=== PATIENT | male | born 1950 | race Caucasian/White ===

== ENCOUNTER 2016-12-19 09:15 | Inpatient (IN) | payer MEDICARE, BC ==
[2016-12-19] VITALS (486 sets, daily range): BP systolic 73–163; BP diastolic 55–117; PULSE 60–103; TEMP 98.3–100.2; O2SAT 85–100
[~2016-12-19] VITALS: Ht 177.8 cm; Wt 109.4 kg
[~2016-12-19 09:15] MED LIST: CELEXA 20MG20 MG/TAB PO; CELEXA40 MG PO; DILAUDID 4MG TAB4 MG PO; GLUCOPHAGE500 MG/TAB PO; HYZAAR 50-12.1 UDTAB PO; LEVAQUIN 750MG750 M1 PO; MS CONTIN 115 MG/TAB PO; MS CONTIN 330 MG/TAB PO; ORAMORPH SR30 MG PO; PAMELOR 10MG10 MG PO; ROXICODONE15 MG PO; VALIUM 5MG T5 MG/TAB PO; VENTOLIN0.09 MG IH
[2016-12-19 10:07] LABS: COLLECTION METHOD CLEAN CATCH
[2016-12-19 10:27] LABS: BUDDING YEAST Present /hpf; GRANULAR CAST >12 /lpf; MUCOUS Present /lpf; PH 5 (5-8); SQUAMOUS EPITHELIAL 0-2 /hpf; URINE APPEARANCE Hazy; URINE BACTERIA Rare /hpf; URINE BILIRUBIN Negative (NEGATIVE); URINE BLOOD 1+ (NEGATIVE); URINE COLOR Yellow; URINE GLUCOSE Negative (NEGATIVE); URINE KETONE Negative (NEGATIVE); URINE LEUKOCYTE ESTERASE Negative (NEGATIVE); URINE PROTEIN(semi-quant) 2+ (NEGATIVE); URINE UROBILINOGEN Negative (NEGATIVE)
[2016-12-19] MEDS ORDERED: MS CONTIN 330 MG/TAB PO (10:31)
[2016-12-19 10:52] LABS: PROTHROMBIN TIME 11.5 SECONDS (9.7-12.8)
[2016-12-19 11:08] LABS: ALBUMIN 4.4 gm/dL (3.5-5.0); BILIRUBIN,TOTAL 0.5 mg/dL (0.0-1.0); CALCIUM 8.3 mg/dL (8.4-10.2); CREATININE, serum 1.72 mg/dL (0.66-1.25); TOTAL PROTEIN 7.5 gm/dL (6.4-8.2)
[2016-12-19 11:26] LABS: BASO % 0.1 % (0.0-2.0); GRAN # 11.9 (1.4-6.5); GRAN % 86.8 % (42.2-75.2); HEMATOCRIT 45.3 % (42.0-52.0); HEMOGLOBIN 13.6 g/dl (13.5-18.0); LYMPH # 0.6 (1.2-3.4); LYMPH % 4.2 % (20.0-51.0); MEAN CELL VOLUME 97 fl (80.0-100.0); MEAN CORPUSCULAR HEMOGLOBIN 29 pg (27.0-31.0); MEAN CORPUSCULAR HGB CONC 30 g/dl (33.0-37.0); MEAN PLATELET VOLUME 11.1 fl (7.4-10.4); MONO # 1.2 (0.1-0.6); MONO % 8.4 % (1.7-9.3); PLATELET COUNT 251 K/mm3 (130-400); RED BLOOD COUNT 4.67 M/mm3 (4.20-5.60); WHITE BLOOD COUNT 13.7 K/mm3 (4.8-10.8)
[2016-12-19 11:43] LABS: ARTERIAL BLD GAS O2 SATURATION 96.7 % (92-100); ARTERIAL BLD GAS TCO2 CT 27.7; ARTERIAL BLOOD GAS HCO3 25.8 meq/L (22-26); ARTERIAL BLOOD GAS PHT 7.23 C (7.35-7.45); ARTERIAL BLOOD GAS PO2 84.9 mmHg (80-100); ARTERIAL BLOOD GAS PO2T 84.9 (80-100); ARTERIAL BLOOD GAS pH 7.23 (7.35-7.45)
[2016-12-19 11:44] LABS: POTASSIUM 6.5 mmol/L (3.4-5.0)
[2016-12-19 11:47] LABS: ATS? NO
[2016-12-19 16:58] LABS: VENOUS BLOOD GAS BE 0.6 (-4-4); VENOUS BLOOD GAS SAO2 58.2 % (60-80)
[2016-12-19 16:59] LABS: VENOUS BLOOD GAS SITE CENTRAL LINE
[2016-12-19 21:23] LABS: MAGNESIUM 1.7 mg/dL (1.6-2.3); PHOSPHOROUS 0.9 mg/dL (2.5-4.5); POTASSIUM 4.7 mmol/L (3.4-5.0)
[2016-12-20] VITALS (959 sets, daily range): BP systolic 114–140; BP diastolic 60–71; PULSE 62–78; TEMP 97.9–99.2; O2SAT 83–100
[2016-12-20 04:18] LABS: BASO % 0.3 % (0.0-2.0); EOS % 0.2 % (0-4.0); GRAN # 9.3 (1.4-6.5); GRAN % 78.6 % (42.2-75.2); LYMPH # 1.4 (1.2-3.4); LYMPH % 11.9 % (20.0-51.0); MEAN CORPUSCULAR HGB CONC 35 g/dl (33.0-37.0); MEAN PLATELET VOLUME 11.5 fl (7.4-10.4); MONO % 8.6 % (1.7-9.3); PLATELET COUNT 157 K/mm3 (130-400); RED BLOOD COUNT 3.61 M/mm3 (4.20-5.60); WHITE BLOOD COUNT 11.8 K/mm3 (4.8-10.8)
[2016-12-20 04:22] LABS: HEMATOCRIT 32.9 % (42.0-52.0); HEMOGLOBIN 11.6 g/dl (13.5-18.0); MEAN CELL VOLUME 91 fl (80.0-100.0); MEAN CORPUSCULAR HEMOGLOBIN 32 pg (27.0-31.0)
[2016-12-20 04:29] LABS: MAGNESIUM 2.3 mg/dL (1.6-2.3)
[2016-12-20 04:30] LABS: ADJUSTED CALCIUM 8.6 mg/dL (8.4-10.2); ALBUMIN 2.9 gm/dL (3.5-5.0); BILIRUBIN,TOTAL 0.2 mg/dL (0.0-1.0); CALCIUM 7.7 mg/dL (8.4-10.2); CREATININE, serum 1.07 mg/dL (0.66-1.25); POTASSIUM 3.7 mmol/L (3.4-5.0); TOTAL PROTEIN 6.1 gm/dL (6.4-8.2)
[2016-12-20 04:42] LABS: TROPONIN-I 0.105 ng/mL (0.000-0.034)
[2016-12-20 05:03] LABS: ARTERIAL BLD GAS O2 SATURATION 97.2 % (92-100); ARTERIAL BLD GAS TCO2 CT 17.1; ARTERIAL BLOOD GAS BASE EXCESS -4.8 (-2-2); ARTERIAL BLOOD GAS HCO3 16.5 meq/L (22-26); ARTERIAL BLOOD GAS PO2 99.5 mmHg (80-100); ARTERIAL BLOOD GAS pH 7.53 (7.35-7.45); OXYHEMOGLOBIN 96.4 %
[2016-12-20 05:04] LABS: ATS? YES
[2016-12-20 06:39] LABS: INR 1.3 (0.8-3.0); PROTHROMBIN TIME 14.1 SECONDS (9.7-12.8)
[2016-12-20 07:05] LABS: VENOUS BLOOD GAS BE 2.1 (-4-4); VENOUS BLOOD GAS SAO2 71.5 % (60-80); VENOUS BLOOD GAS SITE CENTRAL LINE
[2016-12-20 10:25] LABS: VENOUS BLOOD GAS BE 0.3 (-4-4); VENOUS BLOOD GAS SAO2 75.2 % (60-80)
[2016-12-20 10:26] LABS: VENOUS BLOOD GAS SITE CENTRAL LINE
[2016-12-20 11:20] LABS: ARTERIAL BLD GAS O2 SATURATION 93.5 % (92-100); ARTERIAL BLD GAS TCO2 CT 27.6; ARTERIAL BLOOD GAS BASE EXCESS 0.1 (-2-2); ARTERIAL BLOOD GAS HCO3 26.1 meq/L (22-26); ARTERIAL BLOOD GAS PHT 7.35 C (7.35-7.45); ARTERIAL BLOOD GAS PO2 70.5 mmHg (80-100); ARTERIAL BLOOD GAS PO2T 70.5 (80-100); ARTERIAL BLOOD GAS pH 7.35 (7.35-7.45); OXYHEMOGLOBIN 92.9 %
[2016-12-20 11:21] LABS: ABG VENTILATOR TIDAL VOLUME 450 mL; ATS? YES
[2016-12-20 19:37] LABS: ARTERIAL BLD GAS O2 SATURATION 97.1 % (92-100); ARTERIAL BLD GAS TCO2 CT 25.8; ARTERIAL BLOOD GAS BASE EXCESS -0.2 (-2-2); ARTERIAL BLOOD GAS HCO3 24.5 meq/L (22-26); ARTERIAL BLOOD GAS PO2 97.3 mmHg (80-100); ARTERIAL BLOOD GAS PO2T 98.5 (80-100); OXYHEMOGLOBIN 96.2 %
[2016-12-20 19:38] LABS: ABG VENTILATOR TIDAL VOLUME 450 mL; ALLEN TEST YES; ALLENS TEST RESULT PASS; ATS? YES
[2016-12-21] VITALS (1171 sets, daily range): BP systolic 119–143; BP diastolic 66–76; PULSE 63–75; TEMP 98.3–100.3; O2SAT 80–100
[2016-12-21 05:14] LABS: ARTERIAL BLD GAS O2 SATURATION 95.7 % (92-100); ARTERIAL BLD GAS TCO2 CT 27.1; ARTERIAL BLOOD GAS BASE EXCESS -0.4 (-2-2); ARTERIAL BLOOD GAS HCO3 25.6 meq/L (22-26); ARTERIAL BLOOD GAS PHT 7.34 C (7.35-7.45); ARTERIAL BLOOD GAS PO2 88.5 mmHg (80-100); ARTERIAL BLOOD GAS PO2T 88.5 (80-100); ARTERIAL BLOOD GAS pH 7.34 (7.35-7.45); OXYHEMOGLOBIN 94.6 %
[2016-12-21 05:15] LABS: ABG VENTILATOR TIDAL VOLUME 450 mL; ALLEN TEST YES; ALLENS TEST RESULT PASS; ATS? YES
[2016-12-21 05:29] LABS: BASO % 0.2 % (0.0-2.0); EOS % 0.1 % (0-4.0); GRAN # 8.7 (1.4-6.5); GRAN % 85.2 % (42.2-75.2); LYMPH # 0.8 (1.2-3.4); LYMPH % 7.7 % (20.0-51.0); MEAN CELL VOLUME 95 fl (80.0-100.0); MEAN CORPUSCULAR HGB CONC 33 g/dl (33.0-37.0); MEAN PLATELET VOLUME 11.6 fl (7.4-10.4); MONO # 0.6 (0.1-0.6); MONO % 6.1 % (1.7-9.3); PLATELET COUNT 152 K/mm3 (130-400); RED BLOOD COUNT 3.44 M/mm3 (4.20-5.60); WHITE BLOOD COUNT 10.2 K/mm3 (4.8-10.8)
[2016-12-21 05:33] LABS: HEMATOCRIT 32.6 % (42.0-52.0); HEMOGLOBIN 10.7 g/dl (13.5-18.0); MEAN CORPUSCULAR HEMOGLOBIN 31 pg (27.0-31.0)
[2016-12-21 05:34] LABS: INR 1.2 (0.8-3.0); PROTHROMBIN TIME 13.1 SECONDS (9.7-12.8)
[2016-12-21 05:46] LABS: ADJUSTED CALCIUM 8.3 mg/dL (8.4-10.2); ALANINE AMINOTRANSFERASE 38 U/L (21-72); ALKALINE PHOSPHATASE 45 U/L (50-136); ANION GAP 7 mmol/L (7-16); BILIRUBIN,TOTAL < 0.1 mg/dL (0.0-1.0); BLOOD UREA NITROGEN 16 mg/dL (9-20); CALCIUM 7.5 mg/dL (8.4-10.2); CARBON DIOXIDE 24 mmol/L (22-30); CHLORIDE 105 mmol/L (98-107); CREATININE, serum 0.97 mg/dL (0.66-1.25); GLUCOSE 113 mg/dL (74-106); MAGNESIUM 2.1 mg/dL (1.6-2.3); POTASSIUM 4.3 mmol/L (3.4-5.0); SODIUM 137 mmol/L (137-145); TOTAL PROTEIN 5.9 gm/dL (6.4-8.2)
[2016-12-22] VITALS (1289 sets, daily range): BP systolic 117–167; BP diastolic 64–84; PULSE 55–85; TEMP 97.1–99; O2SAT 71–100
[2016-12-22 04:59] LABS: ARTERIAL BLD GAS O2 SATURATION 97.8 % (92-100); ARTERIAL BLD GAS TCO2 CT 25.1; ARTERIAL BLOOD GAS BASE EXCESS -0.8 (-2-2); ARTERIAL BLOOD GAS HCO3 23.9 meq/L (22-26); ARTERIAL BLOOD GAS PO2 115.2 mmHg (80-100); ARTERIAL BLOOD GAS PO2T 113.4 (80-100); OXYHEMOGLOBIN 97.1 %
[2016-12-22 05:01] LABS: ABG VENTILATOR TIDAL VOLUME 480 mL; ALLEN TEST YES; ALLENS TEST RESULT PASS; ATS? YES
[2016-12-22 05:30] LABS: BASO % 0.5 % (0.0-2.0); EOS # 0.4 (0.0-0.7); EOS % 5.4 % (0-4.0); GRAN # 4.9 (1.4-6.5); GRAN % 65.4 % (42.2-75.2); LYMPH # 1.5 (1.2-3.4); LYMPH % 20.4 % (20.0-51.0); MEAN CELL VOLUME 95 fl (80.0-100.0); MEAN CORPUSCULAR HGB CONC 31 g/dl (33.0-37.0); MEAN PLATELET VOLUME 11.2 fl (7.4-10.4); MONO # 0.5 (0.1-0.6); MONO % 7.1 % (1.7-9.3); PLATELET COUNT 141 K/mm3 (130-400); RED BLOOD COUNT 3.46 M/mm3 (4.20-5.60); WHITE BLOOD COUNT 7.4 K/mm3 (4.8-10.8)
[2016-12-22 05:33] LABS: HEMOGLOBIN 10.1 g/dl (13.5-18.0); MEAN CORPUSCULAR HEMOGLOBIN 29 pg (27.0-31.0)
[2016-12-22 05:36] LABS: INR 1.2 (0.8-3.0); PROTHROMBIN TIME 12.8 SECONDS (9.7-12.8)
[2016-12-22 05:40] LABS: ADJUSTED CALCIUM 7.9 mg/dL (8.4-10.2); ALBUMIN 2.7 gm/dL (3.5-5.0); BILIRUBIN,TOTAL 0.4 mg/dL (0.0-1.0); CALCIUM 6.9 mg/dL (8.4-10.2); CREATININE, serum 0.74 mg/dL (0.66-1.25); MAGNESIUM 1.8 mg/dL (1.6-2.3); PHOSPHOROUS 2.7 mg/dL (2.5-4.5); POTASSIUM 3.2 mmol/L (3.4-5.0); TOTAL PROTEIN 5.8 gm/dL (6.4-8.2)
[2016-12-22 14:21] LABS: CALCIUM 8.7 mg/dL (8.4-10.2); CREATININE, serum 0.89 mg/dL (0.66-1.25); MAGNESIUM 1.8 mg/dL (1.6-2.3); POTASSIUM 4.6 mmol/L (3.4-5.0)
[2016-12-22 18:13] LABS: MAGNESIUM 1.7 mg/dL (1.6-2.3); POTASSIUM 3.9 mmol/L (3.4-5.0)
[2016-12-23] VITALS (740 sets, daily range): BP systolic 115–168; BP diastolic 62–84; PULSE 80–95; TEMP 97.8–101.4; O2SAT 66–100
[2016-12-23 05:54] LABS: CALCIUM 8.9 mg/dL (8.4-10.2); CREATININE, serum 0.81 mg/dL (0.66-1.25); MAGNESIUM 1.8 mg/dL (1.6-2.3); POTASSIUM 3.8 mmol/L (3.4-5.0)
[2016-12-23 10:18] LABS: ARTERIAL BLD GAS O2 SATURATION 97.8 % (92-100); ARTERIAL BLD GAS TCO2 CT 20.5; ARTERIAL BLOOD GAS BASE EXCESS -5.8 (-2-2); ARTERIAL BLOOD GAS HCO3 19.3 meq/L (22-26); ARTERIAL BLOOD GAS PHT 7.34 C (7.35-7.45); ARTERIAL BLOOD GAS PO2 102.2 mmHg (80-100); ARTERIAL BLOOD GAS PO2T 102.2 (80-100); ARTERIAL BLOOD GAS pH 7.34 (7.35-7.45)
[2016-12-23 10:20] LABS: ABG VENTILATOR TIDAL VOLUME 450 mL; ALLEN TEST NO; ATS? YES
[2016-12-24 02:41] VITALS: BP 159/76; PULSE 86; TEMP 98.3
[2016-12-24 07:27] VITALS: BP 151/75; PULSE 88; TEMP 97.7
[2016-12-24 12:39] VITALS: BP 148/79; PULSE 82; TEMP 98.4
[2016-12-24] MEDS ORDERED: LEVAQUIN 5500 MG/TA1 PO (14:36)
[2016-12-24] MEDS ORDERED: PROAIR HFA0.09 MG/AC IH (14:39)
[2016-12-24] MEDS ORDERED: ASPIRIN 81M81 MG/TA2 PO (14:40)
== END 2016-12-24 18:30 | disposition home health service (06) | DRG 871 ==
LOC: ICU 09:15 → MEDICAL 12-23 14:47
PROVIDERS: Internal Medicine; Internal Medicine Pulmonary Disease
PROC: 5A1945Z Respiratory Ventilation, 24-96 Consecutive Hours (ICD-10-PCS; principal; 2016-12-19)
DX: A41.9 Sepsis, unspecified organism (principal); J96.01 Acute respiratory failure with hypoxia; J18.9 Pneumonia, unspecified organism; J96.02 Acute respiratory failure with hypercapnia; N17.9 Acute kidney failure, unspecified; E87.1 Hypo-osmolality and hyponatremia; Z66 Do not resuscitate; J44.9 Chronic obstructive pulmonary disease, unspecified; E11.9 Type 2 diabetes mellitus without complications; I10 Essential (primary) hypertension; Z87.891 Personal history of nicotine dependence; E87.5 Hyperkalemia; I27.20 Pulmonary hypertension, unspecified; G89.29 Other chronic pain
CPT/HCPCS: 99233-AI; 99239; C1751; C1894; C9113; J0692; J1450; J1644; J1650; J1720; J1815; J1940; J1956; J2704; J3010; J3475; J3480; J7030; J7060; Q9967

== ENCOUNTER → 2017-09-10 | Emergency (ER) | payer MEDICARE, BC ==
[~2017-09-10] VITALS: Ht 167.6 cm; Wt 104.5 kg
[~2017-09-10] MED LIST changes: +AMOXICILLIN 8751 TAB PO; +ASPIRIN 81M81 MG/TA2 PO; +CIPRO 500MG TA500 MG PO; +FLAGYL500 MG PO; +LEVAQUIN 5500 MG/TA1 PO; +PROAIR HFA0.09 MG/AC IH; +ZOFRAN 4MG T4 MG/TAB PO
[2017-09-10 10:58] VITALS: BP 149/96; PULSE 99; TEMP 98
[2017-09-10 11:41] LABS: BASO # 0.1 (0.0-0.2); BASO % 0.5 % (0.0-2.0); EOS # 0.3 (0.0-0.7); EOS % 2.1 % (0-4.0); GRAN # 8.6 (1.4-6.5); GRAN % 67.5 % (42.2-75.2); HEMATOCRIT 40.7 % (42.0-52.0); HEMOGLOBIN 13.3 g/dl (13.5-18.0); LYMPH # 2.5 (1.2-3.4); LYMPH % 19.6 % (20.0-51.0); MEAN CELL VOLUME 90 fl (80.0-100.0); MEAN CORPUSCULAR HEMOGLOBIN 29 pg (27.0-31.0); MEAN CORPUSCULAR HGB CONC 33 g/dl (33.0-37.0); MEAN PLATELET VOLUME 10.7 fl (7.4-10.4); MONO # 1.2 (0.1-0.6); MONO % 9.3 % (1.7-9.3); PLATELET COUNT 325 K/mm3 (130-400); RED BLOOD COUNT 4.55 M/mm3 (4.20-5.60); REDCELL DISTRIBUTION WIDTH-CV 14.2 % (11.5-14.5)
[2017-09-10 11:45] LABS: ALBUMIN 4.3 gm/dL (3.5-5.0); BILIRUBIN,TOTAL 0.3 mg/dL (0.0-1.0); C-REACTIVE PROTEIN 0.7 mg/dL (0.0-0.9); CALCIUM 9.1 mg/dL (8.4-10.2); CREATININE, serum 0.98 mg/dL (0.66-1.25); POTASSIUM 3.5 mmol/L (3.4-5.0); TOTAL PROTEIN 8.3 gm/dL (6.4-8.2)
[2017-09-10 12:43] LABS: COLLECTION METHOD CLEAN CATCH
[2017-09-10 12:54] LABS: MUCOUS Present /lpf; PH 5 (5-8); SQUAMOUS EPITHELIAL 0-2 /hpf; URINE APPEARANCE Clear; URINE BACTERIA None Seen /hpf; URINE BILIRUBIN Negative (NEGATIVE); URINE BLOOD Negative (NEGATIVE); URINE COLOR Yellow; URINE GLUCOSE Negative (NEGATIVE); URINE KETONE Negative (NEGATIVE); URINE LEUKOCYTE ESTERASE Negative (NEGATIVE); URINE NITRATE Negative (NEGATIVE); URINE PROTEIN(semi-quant) Negative (NEGATIVE); URINE RBC 0-2 /hpf; URINE UROBILINOGEN Negative (NEGATIVE)
== END ==
LOC: COL.ER 10:58
PROVIDERS: Nurse Practitioner Primary Care
DX: R10.32 Left lower quadrant pain (principal); R11.2 Nausea with vomiting, unspecified; R53.81 Other malaise; R53.83 Other fatigue; E11.9 Type 2 diabetes mellitus without complications; I10 Essential (primary) hypertension; K21.9 Gastro-esophageal reflux disease without esophagitis; J44.9 Chronic obstructive pulmonary disease, unspecified; F32.9 Major depressive disorder, single episode, unspecified; G89.29 Other chronic pain; Z87.891 Personal history of nicotine dependence; Z79.82 Long term (current) use of aspirin
CPT/HCPCS: J2270; J2405; J7030; Q9967